=== PATIENT | male | born 1985 | race Caucasian/White ===

== ENCOUNTER 2018-06-29 09:47 | Emergency (ER) | payer OTHER ==
[2018-06-29 09:57] VITALS: BP 120/61; PULSE 80; TEMP 98; BMI 28.1
--- NOTE | 2018-06-29 11:18 | PDOC ---
History of Present Illness - General Chief Complaint: Toothache Stated Complaint: ABSCESS IN MOUTH Time Seen by Provider: 06/29/18 10:33 History Source: Patient Exam Limitations: No Limitations - History of Present Illness Initial Comments: 06/29/18 11:13 Here with dental abscess. States has multiple dental issues status post history of crack use. 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 However has multiple dental issues cracked teeth and erosion. Noted swelling and tenderness above left incisor 2 days ago. HEENT by his PMD 2 weeks ago for different facial swelling and dental issue. Was placed on Augmentin for 10 days which she completed 3 days ago. Severity: mild Past History - Travel Traveled outside of the country in the last 30 days: No Close contact w/someone who was outside of country & ill: No - Past Medical History Allergies/Adverse Reactions: Allergies Allergy/AdvReac Type Severity Reaction Status Date / Time No Known Allergies Allergy Verified 06/29/18 09:56 Home Medications: Ambulatory Orders Amox-Tr/K Cl [Augmentin 875Mg Tablet] 1 tab PO BID #20 tablet 06/29/18 COPD: No - Suicide/Smoking/Psychosocial Hx Smoking History: Never smoked Information on smoking cessation initiated: No Hx Alcohol Use: No Drug/Substance Use Hx: No Review of Systems - Review of Systems Able to Perform ROS?: Yes Is the patient limited Albanian proficient: Yes Constitutional: Yes: Symptoms Reported, See HPI, Malaise. No: Chills, Fever HEENTM: Yes: See HPI, Throat Pain, Mouth Pain, Dental Problems. No: Symptoms Reported Respiratory: Yes: See HPI All Other Systems: Reviewed and Negative *Physical Exam - Vital Signs Last Vital Signs Temp Pulse Resp BP Pulse Ox 98 F 80 18 120/61 99 06/29/18 09:55 06/29/18 09:55 06/29/18 09:55 06/29/18 09:55 06/29/18 09:55 - Physical Exam General Appearance: Yes: Nourished, Appropriately Dressed, Apparent Distress, Mild Distress HEENT: positive: LARISA, TMs Normal, Nasal Congestion, Rhinorrhea, Other ( multiple teeth with significant dental caries, erosion, and decay down to pulse) . negative: Normal ENT Inspection Neck: positive: Supple. 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 intact, Fully Oriented, Alert, Normal Mood/ Affect, Normal Response, Motor Strength 5/5 Procedures - Incision and Drainage I&D Site: Left: Other (gingival abscess on the maxillary at upper incisor) Anesthesia: other (Cetacaine spray) Blade Size: 11 Complications: none Medical Decision Making - Medical Decision Making 06/29/18 11:24 Dental abscess incised and drained, will start on Augmentin and encouraged to be seen at dental facility *DC/Admit/Observation/Transfer Diagnosis at time of Disposition: Dental decay, Abscess, dental - Discharge Dispostion Disposition: HOME Condition at time of disposition: Stable Decision to Admit order: No - Prescriptions Prescriptions: Amox-Tr/K Cl [Augmentin 875Mg Tablet] 1 tab PO BID #20 tablet - Referrals Referrals: Melany Hays MD [Primary Care Provider] - - Patient Instructions Printed Discharge Instructions: DI for Tooth Decay Additional Instructions: Rest, drink lots of fluids: Teas, water, soups Saltwater gargles/ keep mouth clean and rinse after each meal May use wet teabag for pain relief to area Avoid hard chewing foods, stick to ice cream, Jell-O, yogurt etc. Tylenol or Motrin for fever and pain Complete all medication as prescribed Seek dental appointment as soon as possible for evaluation of dental injury/pain Followup with private physician in one to 2 days as needed Return to emergency department for worsened symptoms, fevers, swelling to face or worsened pain [facility] AT [address] [id number] [email or web address] PATIENT CARE: [phone] - Post Discharge Activity Forms/Work/School Notes: Back to Work
== END 2018-06-29 11:41 | disposition home or self-care (01) ==
LOC: JERFT 09:47
DX: K02.9 Dental caries, unspecified (principal); K12.2 Cellulitis and abscess of mouth; F11.21 Opioid dependence, in remission; Z79.891 Long term (current) use of opiate analgesic
CPT/HCPCS: 99281-25

== ENCOUNTER 2020-09-15 13:35 | Emergency (ER) | payer OTHER ==
[2020-09-15 13:43] VITALS: BP 115/64; PULSE 68; TEMP 98; BMI 25.0
[2020-09-15] MEDS ORDERED: IBUPROFEN 600 MG TABLET (FP) PO ONE (14:29)
[2020-09-15] MEDS ORDERED: PSEUDOEPHEDRINE HCL 60 MG TABLET PO ONE (14:29)
== END 2020-09-15 14:55 | disposition home or self-care (01) ==
LOC: JER 13:35
DX: J32.9 Chronic sinusitis, unspecified (principal)
CPT/HCPCS: 99283-25